=== PATIENT | female | born 1995 | race African-American/Black ===

== ENCOUNTER 2017-04-29 17:16 | Emergency (ER) | payer BC, OTHER ==
[~2017-04-29] VITALS: Ht 162.6 cm; Wt 59.0 kg
[2017-04-29 17:19] VITALS: BP 125/75
== END 2017-04-29 21:00 | disposition left against medical advice (07) ==
LOC: ER 17:45
DX: R07.9 Chest pain, unspecified (principal); Z53.21 Procedure and treatment not carried out due to patient leaving prior to being seen by health care provider

== ENCOUNTER 2021-03-20 20:19 | Emergency (ER) | payer MEDICAID, OTHER ==
[~2021-03-20] VITALS: Ht 162.6 cm; Wt 73.0 kg
[2021-03-20 23:12] LABS: BASOPHILS % 0.3 % (0.0-2.0); EOSINOPHILS % 1.4 % (0.0-5.0); HEMATOCRIT. 35.1 % (36.0-48.0); HEMOGLOBIN. 12.3 g/dL (12.0-16.0); LYMPHOCYTES % 20.8 % (20.0-50.0); MEAN CORPUSCULAR HEMOGLOBIN 32.5 pg (28.0-32.0); MEAN CORPUSCULAR VOLUME 92.1 fL (81.0-99.0); MEAN PLATELET VOLUME 7.8 fl (7.4-10.4); MONOCYTES % 6.4 % (2.0-8.0); NEUTROPHILS % 71.1 % (40.0-76.0); PLATELET 299 x1000/uL (130-400); RED CELL DISTRIBUTION WIDTH 13.2 % (11.6-14.6)
[2021-03-20 23:18] LABS: CHLORIDE 109 mEq/L (98-107)
[2021-03-20 23:42] LABS: B-HCG QUANTITATIVE 1453 mIU/mL (<3)
[2021-03-21 00:32] LABS: CLARITY URINE CLOUDY (CLEAR); COLOR URINE YELLOW (YELLOW); KETONES URINE 1+ (NEGATIVE); LEUKOCYTE ESTERASE URINE NEGATIVE (NEGATIVE); NITRITE URINE NEGATIVE (NEGATIVE); OCCULT BLOOD URINE 2+ (NEGATIVE); PH URINE 6.5 (4.5-8.0); PROTEIN URINE NEGATIVE (NEGATIVE); SPECIFIC GRAVITY URINE 1.009 (1.005-1.030); UROBILINOGEN URINE 0.2 E.U./dL (0.2-1.0)
[2021-03-21 00:55] VITALS: BP 116/70
== END 2021-03-21 00:59 | disposition home or self-care (01) ==
LOC: ER 20:19
DX: O02.1 Missed abortion (principal)
CPT/HCPCS: 36415; 76801; 80053; 81003; 81025; 84702; 85025; 86850; 86900; 99284

== ENCOUNTER 2021-06-17 02:56 | Emergency (ER) | payer MEDICAID, OTHER ==
[~2021-06-17] VITALS: Ht 165.1 cm; Wt 73.0 kg
[2021-06-17 02:58] VITALS: BP 121/82
== END 2021-06-17 05:12 | disposition left against medical advice (07) ==
LOC: ER 02:56
DX: Z53.21 Procedure and treatment not carried out due to patient leaving prior to being seen by health care provider (principal); R06.02 Shortness of breath
CPT/HCPCS: 93005; 99283

== ENCOUNTER 2024-08-25 20:41 | Emergency (ER) | payer MEDICAID, OTHER ==
[~2024-08-25] VITALS: Ht 162.6 cm; Wt 75.0 kg
[2024-08-25 20:58] VITALS: BP 135/75; PULSE 92; RESP 18; TEMP 36.9; O2SAT 100
[2024-08-25] MEDS ORDERED: LOPERAMIDE HCL 2MG CAPSULE PO ONE (21:00)
== END 2024-08-25 23:12 | disposition left against medical advice (07) ==
LOC: ER 20:41
DX: R19.7 Diarrhea, unspecified (principal); Z88.0 Allergy status to penicillin
CPT/HCPCS: 99281